=== PATIENT | male | born 1975 ===

== ENCOUNTER 2017-11-17 20:12 | Emergency (ER) | payer SELFPAY ==
[2017-11-17 20:35] VITALS: BMI 22.3
[2017-11-17] MEDS ORDERED: Albuterol-Ipratrop 3 mg / 0.5 (3 ml) UD IH STA (21:08)
--- NOTE | 2017-11-17 21:54 | ED PDOC ---
Arrival/HPI - General Chief Complaint: Shortness Of Breath Time Seen by Provider: 11/17/17 20:21 Historian: Patient - History of Present Illness Narrative History of Present Illness (Text): 11/17/17 20:55 Estevan June is a 42 year old male, whose past medical history includes hypertension and ESRD on hemodialysis, who presents to the ED complaining cough with shortness of breath this evening. Patient is scheduled for dialysis tomorrow. Patient denies any chest pain, fever, chills, back pain, leg pain, or any other complaints. Symptom Onset: Gradual Symptom Course: Unchanged Activities at Onset: Light Context: Home Past Medical History - Provider Review Nursing Documentation Reviewed: Yes - Cardiac Hx Cardiac Disorders: No - Pulmonary Hx Respiratory Disorders: No - Neurological Hx Neurological Disorder: No - Renal Hx Renal Disorder: Yes Hx Dialysis: Yes Hx Renal Failure: Yes - Endocrine/Metabolic Hx Endocrine Disorders: No - Psychiatric Hx Substance Use: No - Anesthesia Hx Anesthesia: Yes Hx Anesthesia Reactions: No Family/Social History - Physician Review Nursing Documentation Reviewed: Yes Family/Social History: Unknown Family HX Smoking Status: Never Smoked Hx Alcohol Use: No Hx Substance Use: No Allergies/Home Meds Allergies/Adverse Reactions: Allergies No Known Allergies Allergy (Verified 11/17/17 20:35) Review of Systems - Physician Review All systems were reviewed & negative as marked: Yes - Review of Systems Constitutional: Normal. absent: Fevers Eyes: Normal ENT: Normal Respiratory: SOB, Cough, Sputum Cardiovascular: Normal. absent: Chest Pain Gastrointestinal: Normal. absent: Abdominal Pain, Diarrhea, Nausea, Vomiting Genitourinary Male: Normal. absent: Dysuria, Frequency, Hematuria, Urinary Output Changes Musculoskeletal: Normal. absent: Back Pain, Neck Pain Skin: Normal. absent: Rash Neurological: Normal. absent: Headache, Dizziness Endocrine: Normal Hemo/Lymphatic: Normal Psychiatric: Normal Physical Exam Vital Signs Reviewed: Yes Vital Signs Temp Pulse Resp BP Pulse Ox 11/17/17 23:31 143/111 H 11/17/17 22:58 174/112 H 11/17/17 22:37 98.7 F 89 18 147/114 H 96 11/17/17 21:38 19 96 11/17/17 20:35 110 H 20 178/100 H 92 L Temperature: Afebrile Blood Pressure: Hypertensive Pulse: Regular Respiratory Rate: Normal Appearance: Positive for: Well-Appearing, Non-Toxic, Comfortable Pain Distress: None Mental Status: Positive for: Alert and Oriented X 3 - Systems Exam Head: Present: Atraumatic, Normocephalic Pupils: Present: PERRL Extroacular Muscles: Present: EOMI Conjunctiva: Present: Normal Ears: Present: Normal, NORMAL TM, Normal Canal. No: Erythema, TM Bulging, Fluid, TM Perf Mouth: Present: Moist Mucous Membranes Pharnyx: Present: Normal. No: ERYTHEMA, EXUDATE, TONSILS ENLARGED, Peritonsilar Swelling, Uvular Deviation, Muffled/Hoarse Voice, Strider, Soft Palate/Uvular Edema Nose (External): Present: Atraumatic Nose (Internal): Present: Normal Inspection Neck: Present: Normal Range of Motion. No: Meningeal Signs, MIDLINE TENDERNESS, Paraspinal Tenderness Respiratory/Chest: Present: Rhonchi (Rhonchi bilaterally). No: Respiratory Distress, Accessory Muscle Use Cardiovascular: Present: Regular Rate and Rhythm, Normal S1, S2. No: Murmurs Abdomen: No: Tenderness, Distention, Peritoneal Signs Back: Present: Normal Inspection. No: CVA Tenderness, Midline Tenderness, Paraspinal Tenderness Upper Extremity: Present: Normal Inspection. No: Cyanosis, Edema Lower Extremity: Present: Normal Inspection. No: Edema Neurological: Present: GCS=15, CN II-XII Intact, Speech Normal, Motor Func Grossly Intact, Normal Sensory Function, Normal Cerebellar Funct Skin: Present: Warm, Dry, Normal Color. No: Rashes Psychiatric: Present: Alert, Oriented x 3, Normal Insight, Normal Concentration Medical Decision Making ED Course and Treatment: 11/17/17 20:55 Impression: 42 year old male complaining of cough with some shortness of breath this evening. Plan: -- EKG -- CXR -- Labs, cardiac enzymes, BNP -- Duoneb -- Reassess and disposition Prior Visits: Notes and results from previous visits were reviewed. Progress Notes: 11/17/17 21:10 EKG reviewed, sinus tachycardia at 124 bpm[address] Non-specific ST/T wave changes. 11/17/17 22:42 CXR reviewed, consistent with CHF. 11/17/17 23:[address] Vallecillo, geography head, who agrees with emergent dialysis and recommends additional Lasix 100mg IV. States he will arrange for dialysis. 11/17/17 23:[address] Moncada, ED attending at [facility], [place], who accepts pt on transfer. Based upon the information available at the time of transfer, the medical benefits reasonably expected from the provision of medical treatment at [facility] [place] outweigh the increased risk to the patient for transfer from this facility. I have described the inherent risks and benefits of the transfer to the patient, and patient agrees to transfer. I have spoken to Dr. Vallecillo, geography head, and Dr. Moncada, ED attending at [facility] [place], who has agreed to accept transfer of the patient and provide further medical treatment at the receiving facility. At the time of transfer, copies of all medical records sent which related to the emergency condition for which the individual presented. These records include observations of signs or symptoms, preliminary clinical impression, treatment provided, results of any completed test and an informed written consent to the transfer. - Lab Interpretations Lab Results: 11/17/17 21:55 11/17/17 21:55 Lab Results 11/17/17 21:55: Sodium 141, Potassium 4.6, Chloride 97 L, Carbon Dioxide 25, Anion Gap 23 H, BUN 64 H, Creatinine 14.4 H*, Est GFR ( Amer) 5, Est GFR (Non-Af Amer) 4, Random Glucose 91, Calcium 9.4, Total Bilirubin 0.9, AST 25, ALT 23, Alkaline Phosphatase 75, Lactate Dehydrogenase 654, Total Creatine Kinase 332 H, CK-MB (CK-2) 2.1, CK-MB (CK-2) % Cancelled, Troponin I 0.16 H*, NT-Pro-B Natriuret Pep 155294 H, Total Protein 6.9, Albumin 3.8, Globulin 3.2, Albumin/Globulin Ratio 1.2 11/17/17 21:55: WBC 7.0, RBC 3.40 L, Hgb 10.7 L, Hct 32.0 L, MCV 94.1, MCH 31.5, MCHC 33.4, RDW 15.4 H, Plt Count 132, MPV 11.7 H 11/17/17 21:55: PT 13.1 H, INR 1.15, APTT 26.8 I have reviewed the lab results: Yes - RAD Interpretation Radiology Orders: 11/17/17 20:58 CHEST PORTABLE [RAD] [employer]: ED Physician - Medication Orders Current Medication Orders: Discontinued Medications Albuterol/Ipratropium (Duoneb 3 Mg/0.5 Mg (3 Ml) Ud) 3 ml IH ONCE STA Stop: 11/17/17 21:09 Last Admin: 11/17/17 21:39 Dose: 3 ml Furosemide (Lasix) 40 mg IVP ONCE ONE Stop: 11/17/17 22:47 Last Admin: 11/17/17 22:58 Dose: 40 mg MAR Blood Pressure Document 11/17/17 22:58 [facility] (Rec: 11/17/17 23:00 [facility] [id number]) Blood Pressure Blood Pressure (100/60-150/90 mm Hg) 174/112 IVP Administration Document 11/17/17 22:58 [facility] (Rec: 11/17/17 23:00 [id number] Charges for Administration # of IVP Administrations 1 Furosemide (Lasix) 100 mg IVP ONCE ONE Stop: 11/17/17 23:09 Last Admin: 11/17/17 23:31 Dose: 100 mg MAR Blood Pressure Document 11/17/17 23:31 R (Rec: 11/17/17 23:32 [id number] Blood Pressure Blood Pressure (100/60-150/90 mm Hg) 143/111 IVP Administration Document 11/17/17 23:31 R (Rec: 11/17/17 23:32 [id number] Charges for Administration # of IVP Administrations 1 Guaifenesin/Dextromethorphan (Robitussin Dm) 5 ml PO ONCE ONE Stop: 11/17/17 23:15 Last Admin: 11/17/17 23:32 Dose: 5 ml - Scribe Statement The provider has reviewed the documentation as recorded by the Scribbertram Solano All medical record entries made by the Shandaibbertram were at my direction and personally dictated by me. I have reviewed the chart and agree that the record accurately reflects my personal performance of the history, physical exam, medical decision making, and the department course for this patient. I have also personally directed, reviewed, and agree with the discharge instructions and disposition. Disposition/Present on Arrival - Present on Arrival Any Indicators Present on Arrival: No History of DVT/PE: No History of Uncontrolled Diabetes: No Urinary Catheter: No History of Decub. Ulcer: No History Surgical Site Infection Following: None - Disposition Have Diagnosis and Disposition been Completed?: Yes Diagnosis: CHF (congestive heart failure), ESRD (end stage renal disease) Disposition: Transfer [facility] [place] Disposition Time: 00:21 Condition: STABLE Discharge Instructions (ExitCare): Heart Failure (ED) Referrals: PCP,NO [Primary Care Provider] - Follow up with primary Forms: [employer] (Khmer)
[2017-11-17 21:59] LABS: HEMOGLOBIN 10.7 g/dL (14.0-18.0); MEAN CELL VOLUME 94.1 fl (80.0-105.0); MEAN CORPUSCULAR HEMOGLOBIN 31.5 pg (25.0-35.0); MEAN CORPUSCULAR HGB CONC 33.4 g/dl (31.0-37.0); MEAN PLATELET VOLUME 11.7 fl (7.0-11.0); RBC 3.4 10^6/uL (3.5-6.1); RED CELL DISTRIBUTION WIDTH 15.4 % (11.5-14.5)
[2017-11-17 22:10] LABS: ALB/GLOB RATIO 1.2 (1.1-1.8); ALBUMIN 3.8 g/dL (3.0-4.8); CALCIUM 9.4 mg/dL (8.4-10.5)
[2017-11-17 22:11] LABS: INR 1.15; PARTIAL THROMBOPLASTIN TIME 26.8 Seconds (25.1-36.5); PROTHROMBIN TIME 13.1 SECONDS (9.4-12.5)
[2017-11-17 22:44] LABS: CK-MB 2.1 ng/mL (0.0-3.6)
[2017-11-17 22:45] LABS: TROPONIN I 0.16 ng/mL
[2017-11-17] MEDS ORDERED: guaiFENesin DM 100 mg-10 mg/5 ml UD PO ONE (23:14)
[2017-11-17 23:32] VITALS: BP 143/111
[2017-11-17 23:38] VITALS: PULSE 89; RESP 18; TEMP 98.7; O2SAT 96
--- NOTE | 2017-11-18 09:44 | RAD ---
Date of service: 11/17/2017 HISTORY: sob COMPARISON: No prior FINDINGS: LUNGS: Bibasilar infiltrates. Likely right lower lobe. Left lower lobe versus lingula. PLEURA: Probable small left pleural effusion. No evidence of right pleural effusion. No pneumothorax. CARDIOVASCULAR: Normal heart size. Mild congestive change OSSEOUS STRUCTURES: No significant abnormalities. VISUALIZED UPPER ABDOMEN: Normal. OTHER FINDINGS: None. IMPRESSION: Bibasilar infiltrates. Possible very small left pleural effusion. Followup advised.
--- NOTE | 2017-11-18 09:53 | CARD ---
APPROVED REPORT Date of service: 11/17/2017 EKG Measurement Heart [id number] <Conclusion> Sinus tachycardia PRWP NSSTW changes Prolonged QTc
== END 2017-11-18 00:16 | disposition short-term general hospital (02) ==
LOC: ED 20:12
DX: I50.9 Heart failure, unspecified (principal); I12.0 Hypertensive chronic kidney disease with stage 5 chronic kidney disease or end stage renal disease; N18.6 End stage renal disease; Z99.2 Dependence on renal dialysis
CPT/HCPCS: 71045; 80053; 82550; 82553; 83615; 83880; 84484; 85027; 85610; 85730; 93005; 96374; 96375; 99283; J1940